=== PATIENT | male | born 1955 | race African-American/Black ===

== ENCOUNTER 2020-07-18 14:43 | Inpatient (IN) | payer OTHER ==
[2020-07-18 19:14] VITALS: BMI 22.7
[2020-07-18] MEDS ORDERED: BISMUTH SUBSALICYLATE 524 MG/30 ML UD PO PRN (21:23)
[2020-07-18] MEDS ORDERED: hydrOXYzine PAMOATE 25 MG CAPSULE (FP) PO PRN (21:23)
[2020-07-18] MEDS ORDERED: IBUPROFEN 400 MG TABLET (FP) PO PRN (21:23)
[2020-07-18] MEDS ORDERED: MAG HYDROX/AL HYDROX/SIMETH 30 ML UNIT-DOSE CUP PO PRN (21:23)
[2020-07-18] MEDS ORDERED: MENTHOL/PHENOL 1 EACH UD MM PRN (21:23)
[2020-07-18] MEDS ORDERED: ONDANSETRON *ODT* 4 MG TABLET SL PRN (21:23)
[2020-07-18] MEDS ORDERED: MAGNESIUM CITRATE 300 ML BOTTLE PO PRN (21:23)
[2020-07-18] MEDS ORDERED: MAGNESIUM HYDROX 2400MG/30ML ORAL SUSPENSION 30 ML CUP PO PRN (21:23)
[2020-07-18] MEDS ORDERED: ACETAMINOPHEN 325 MG TABLET (FP) PO PRN ×2 (21:23)
[2020-07-18] MEDS ORDERED: METHOCARBAMOL 500 MG TABLET PO PRN (21:23)
[2020-07-18] MEDS ORDERED: METHADONE HCL 10 MG TABLET (FOR DETOX USE ONLY) PO ONE (21:26)
[2020-07-18] MEDS ORDERED: cloNIDine HCL 0.1 MG TABLET PO PRN (21:26)
[2020-07-18] MEDS: MELATONIN 5 MG TABLETS PO SCH (22:08)
[2020-07-18] MEDS: THIAMINE HCL 100 MG TABLET (FP) PO SCH (22:08)
[2020-07-19 09:58] VITALS: BP 146/80; PULSE 73; TEMP 98.3
[2020-07-19] MEDS ORDERED: PRENATAL VITAMINS W/ FOLIC ACID TABLET (FP) PO SCH (10:00)
[2020-07-19] MEDS ORDERED: amLODIPine BESYLATE 10 MG TABLET (FP) PO SCH (10:00)
[2020-07-19] MEDS ORDERED: METHADONE HCL 5 MG TABLET (FOR DETOX USE ONLY) PO ONE (10:00)
[2020-07-19 11:04] LABS: ALBUMIN 3.5 g/dl (3.4-5.0); BLOOD UREA NITROGEN 18.9 mg/dL (7-18); CALCIUM 9.1 mg/dL (8.5-10.1)
[2020-07-19 11:07] LABS: CREATININE 1.2 mg/dL (0.55-1.3); HEMATOCRIT 20.9 % (35.4-49); HEMOGLOBIN 7.5 GM/dL (11.7-16.9); MCH 33.1 pg (25.7-33.7); MCHC 35.9 g/dl (32.0-35.9); MEAN CELL VOLUME 92.3 fl (80-96); MEAN PLT VOLUME 8.5 fl (7.5-11.1); PLATELET COUNT 138 K/MM3 (134-434); RBC 2.27 M/mm3 (4.00-5.60); RDW 20.4 % (11.9-15.9); WHITE BLOOD COUNT 3.5 K/mm3 (4.0-10.0)
[2020-07-19 11:09] LABS: BILIRUBIN,TOTAL 0.6 mg/dL (0.2-1); TOT PROT 7.2 g/dl (6.4-8.2)
[2020-07-19] MEDS: MELATONIN 5 MG TABLETS PO SCH (23:16)
[2020-07-19] MEDS: THIAMINE HCL 100 MG TABLET (FP) PO SCH (23:16)
[2020-07-20] MEDS ORDERED: METHADONE HCL 10 MG TABLET (FOR DETOX USE ONLY) PO ONE (10:00)
[2020-07-21] MEDS ORDERED: METHADONE HCL 5 MG TABLET (FOR DETOX USE ONLY) PO ONE (10:00)
== END 2020-07-20 00:14 | disposition short-term general hospital (02) | DRG 773 ==
LOC: YASAS 14:43 → Y6N 21:12
PROVIDERS: ADMIT Allergy & Immunology; ATTEND Allergy & Immunology
PROC: HZ2ZZZZ Detoxification Services for Substance Abuse Treatment (ICD-10-PCS; principal; 2020-07-18)
DX: F11.23 Opioid dependence with withdrawal (principal); F12.20 Cannabis dependence, uncomplicated; F17.210 Nicotine dependence, cigarettes, uncomplicated; I10 Essential (primary) hypertension; C34.90 Malignant neoplasm of unspecified part of unspecified bronchus or lung; R06.02 Shortness of breath; R05 Cough; K00.0 Anodontia
CPT/HCPCS: 36415; 80053; 85027; 86780; 93005; 93010; C9803; U0003; U0005

== ENCOUNTER 2020-07-19 12:45 | Inpatient (IN) | payer OTHER ==
[2020-07-19] MEDS ORDERED: SODIUM CHLORIDE 0.9% 500 ML INFUS.BAG IV ONE (14:20)
[2020-07-19 14:38] LABS: VENOUS BASE EXCESS 5.2 mmol/L (-2-2); VENOUS O2 SATURATION 42.5 % (70-80); VENOUS PCO2 60.3 mmHg (38-52); VENOUS PH 7.339 (7.310-7.410)
[2020-07-19 14:40] LABS: BASO % 0.1 % (0-2.0); EOS % 0.2 % (0-4.5); HEMATOCRIT 21.1 % (35.4-49); HEMOGLOBIN 7.3 GM/dL (11.7-16.9); MCH 32.6 pg (25.7-33.7); MCHC 34.6 g/dl (32.0-35.9); MEAN CELL VOLUME 94.3 fl (80-96); MEAN PLT VOLUME 8.4 fl (7.5-11.1); MONO % 4.8 % (3.8-10.2); NEUT % 80.9 % (42.8-82.8); PLATELET COUNT 155 K/MM3 (134-434); RBC 2.24 M/mm3 (4.00-5.60); RDW 20.4 % (11.9-15.9)
[2020-07-19 14:46] LABS: INR 1.05 (0.83-1.09); PROTHROMBIN TIME (PATIENT) 12.9 SEC (9.7-13.0)
[2020-07-19 14:58] LABS: CHLORIDE 88 mmol/L (98-107); SODIUM 126 mmol/L (136-145)
[2020-07-19 15:01] LABS: BLOOD UREA NITROGEN 19.3 mg/dL (7-18); CALCIUM 8.7 mg/dL (8.5-10.1)
[2020-07-19 15:02] LABS: ALBUMIN 3.8 g/dl (3.4-5.0); ANION GAP 3 MMOL/L (8-16); CO2 35 mmol/L (21-32); GLUCOSE,RANDOM 69 mg/dL (74-106); MAGNESIUM 1.8 mg/dL (1.8-2.4)
[2020-07-19 15:05] LABS: CREATININE 1.2 mg/dL (0.55-1.3); SGOT/AST 115 U/L (15-37); SGPT/ALT 80 U/L (13-61)
[2020-07-19 15:06] LABS: BILIRUBIN,TOTAL 0.7 mg/dL (0.2-1)
[2020-07-19 15:07] LABS: ALK PHOS 87 U/L (45-117)
[2020-07-19 15:10] LABS: N-TERMINAL BNP 400.3 pg/ml (5-125); TOT PROT 7.4 g/dl (6.4-8.2)
[2020-07-19] MEDS ORDERED: LEVOTHYROXINE NA 125 MCG TABLET (FP) PO ONE (15:49)
[2020-07-19] MEDS ORDERED: LEVOTHYROXINE NA 25 MCG TABLET (FP) ONE (16:21)
[2020-07-19 22:08] LABS: URINE APPEARANCE CLEAR; URINE BILIRUBIN NEGATIVE (NEGATIVE); URINE COLOR YELLOW; URINE GLUCOSE (UA) NEGATIVE (NEGATIVE); URINE KETONE NEGATIVE (NEGATIVE); URINE LEUK ESTERASE NEGATIVE (NEGATIVE); URINE NITRITE NEGATIVE (NEGATIVE); URINE PROTEIN NEGATIVE (NEGATIVE); URINE UROBILINOGEN 0.2 mg/dL (0.2-1.0)
[2020-07-19 22:14] LABS: METHADONE, UR NEGATIVE ng/ml (CUTOFF=300); PHENCYCLIDINE,URINE NEGATIVE ng/ml (CUTOFF=25); URINE BENZODIAZEPINES NEGATIVE ng/ml (CUTOFF=200)
[2020-07-19 22:15] LABS: URINE AMPHETAMINES NEGATIVE ng/ml (CUTOFF=500)
[2020-07-19] MEDS ORDERED: SODIUM PHOSPHATE - 15 MM in SODIUM CHLORIDE 250 ML IVPB ONE (22:15)
[2020-07-19] MEDS ORDERED: NAPH,MB-DB/K PH,MBDB POWDER PACKET PO ONE (22:16)
[2020-07-19] MEDS ORDERED: NAPH,MB-DB/K PH,MBDB POWDER PACKET ONE (22:22)
[2020-07-19 22:23] LABS: COCAINE, UR NEGATIVE ng/ml (CUTOFF=300); OPIATES, URI POSITIVE ng/ml (CUTOFF=300); URINE BARBITURATES NEGATIVE ng/ml (CUTOFF=200)
[2020-07-19 22:34] LABS: IRON SERUM 72 ug/dL (50-175); TOTAL IRON BINDING CAPACITY 241 ug/dL (250-450)
[2020-07-19 22:35] LABS: RETICULOCYTES 2.26 % (0.5-1.5)
[2020-07-19] MEDS: NICOTINE 7 MG/24 HOURS TOPICAL PATCH TD SCH (22:55)
[2020-07-19] MEDS ORDERED: amLODIPine BESYLATE 5 MG TABLET (FP) PO ONE (23:24)
[2020-07-20] MEDS: SODIUM CHLORIDE 1,000 ML IV SCH ×2 (04:43→07:43)
[2020-07-20] MEDS ORDERED: METHADONE HCL 5 MG TABLET PO ONE (05:35)
[2020-07-20] MEDS: LEVOTHYROXINE NA 50 MCG TABLET (FP) PO SCH (05:59)
[2020-07-20] MEDS: INSULIN SLIDING SCALE (NOVOLOG) 1 VIAL SQ SCH ×4 (06:11→21:45)
[2020-07-20] MEDS ORDERED: PNEUMOC 13-VAL CONJ-DIP CRM/PF 0.5 ML DISP.SYRIN IM ONE (06:22)
[2020-07-20] MEDS ORDERED: LEVOTHYROXINE NA 75 MCG TABLET (FP) PO SCH (07:00)
[2020-07-20] MEDS ORDERED: cloNIDine HCL 0.1 MG TABLET PO PRN (09:04)
[2020-07-20] MEDS ORDERED: FLU VACCINE (FLULAVAL) PF 60 MCG/0.5 ML SYRINGE 2020-2021 IM ONE (10:00)
[2020-07-20] MEDS ORDERED: PNEUMOCOCCAL 23 VACCINE 0.5 ML VIAL IM ONE (10:00)
[2020-07-20] MEDS ORDERED: METHADONE 20 MG, METHADONE 5 MG PO ONE (10:00)
[2020-07-20] MEDS ORDERED: METHADONE HCL 10 MG TABLET ONE (10:33)
[2020-07-20] MEDS ORDERED: METHADONE HCL 5 MG TABLET ONE (10:33)
[2020-07-20] MEDS: POLYETHYLENE GLYCOL 3350 119 GM BTL PO SCH (10:45)
[2020-07-20] MEDS: amLODIPine BESYLATE 5 MG TABLET (FP) PO SCH (10:48)
[2020-07-20] MEDS: ENOXAPARIN NA (PORCINE) 40 MG/0.4 ML DISP.SYRIN SQ SCH (10:50)
[2020-07-20 12:01] LABS: BASO % 0.2 % (0-2.0); EOS % 0.4 % (0-4.5); HEMOGLOBIN 9.4 GM/dL (11.7-16.9); LYMPH % 14.9 % (8-40); MCH 32.3 pg (25.7-33.7); MEAN CELL VOLUME 92.5 fl (80-96); MEAN PLT VOLUME 8.1 fl (7.5-11.1); MONO % 4.8 % (3.8-10.2); NEUT % 79.7 % (42.8-82.8); PLATELET COUNT 141 K/MM3 (134-434); RBC 2.92 M/mm3 (4.00-5.60); WHITE BLOOD COUNT 3.6 K/mm3 (4.0-10.0)
[2020-07-20 12:28] LABS: ALBUMIN 3.6 g/dl (3.4-5.0); CALCIUM 8.9 mg/dL (8.5-10.1)
[2020-07-20 12:29] LABS: BLOOD UREA NITROGEN 14.9 mg/dL (7-18); MAGNESIUM 1.9 mg/dL (1.8-2.4)
[2020-07-20 12:32] LABS: CREATININE 1.1 mg/dL (0.55-1.3); PHOSPHOROUS 2.5 mg/dL (2.5-4.9)
[2020-07-20 12:33] LABS: BILIRUBIN,TOTAL 1.2 mg/dL (0.2-1); TOT PROT 7.7 g/dl (6.4-8.2)
[2020-07-20] MEDS: NICOTINE 7 MG/24 HOURS TOPICAL PATCH TD SCH (14:24)
[2020-07-20] MEDS: MINERAL OIL/PET HY-PHL TOPICAL OINTMENT 454 GM JAR TP SCH ×2 (18:23→22:25)
[2020-07-21] MEDS ORDERED: BISACODYL 5 MG TABLET.DR (FP) PO ONE (01:52)
[2020-07-21] MEDS: LEVOTHYROXINE NA 50 MCG TABLET (FP) PO SCH (06:08)
[2020-07-21] MEDS: INSULIN SLIDING SCALE (NOVOLOG) 1 VIAL SQ SCH ×4 (06:13→21:47)
[2020-07-21] MEDS ORDERED: amLODIPine BESYLATE 5 MG TABLET (FP) PO ONE (06:22)
[2020-07-21] MEDS ORDERED: LISINOPRIL 10 MG TABLET PO ONE (07:49)
[2020-07-21 08:16] LABS: HEMATOCRIT 25.5 % (35.4-49); HEMOGLOBIN 9.2 GM/dL (11.7-16.9); MCH 32.7 pg (25.7-33.7); MCHC 35.9 g/dl (32.0-35.9); MEAN PLT VOLUME 7.8 fl (7.5-11.1); PLATELET COUNT 136 K/MM3 (134-434); RDW 19.9 % (11.9-15.9); WHITE BLOOD COUNT 3.2 K/mm3 (4.0-10.0)
[2020-07-21 08:36] LABS: ALBUMIN 3.5 g/dl (3.4-5.0); BLOOD UREA NITROGEN 13.4 mg/dL (7-18); CALCIUM 8.9 mg/dL (8.5-10.1)
[2020-07-21 08:39] LABS: CREATININE 1.1 mg/dL (0.55-1.3)
[2020-07-21 08:40] LABS: TOT PROT 7.2 g/dl (6.4-8.2)
[2020-07-21] MEDS: amLODIPine BESYLATE 5 MG TABLET (FP) PO SCH (09:37)
[2020-07-21] MEDS: MINERAL OIL/PET HY-PHL TOPICAL OINTMENT 454 GM JAR TP SCH ×2 (09:38→21:47)
[2020-07-21] MEDS: ENOXAPARIN NA (PORCINE) 40 MG/0.4 ML DISP.SYRIN SQ SCH (09:38)
[2020-07-21] MEDS: POLYETHYLENE GLYCOL 3350 119 GM BTL PO SCH (09:39)
[2020-07-21] MEDS: NICOTINE 7 MG/24 HOURS TOPICAL PATCH TD SCH (09:39)
[2020-07-21] MEDS ORDERED: METHADONE HCL 10 MG TABLET PO ONE (10:00)
[2020-07-21] MEDS ORDERED: MINERAL OIL ENEMA 133 ML ENEMA PR ONE (15:29)
[2020-07-21 16:15] VITALS: BMI 21.2
[2020-07-21] MEDS: SODIUM CHLORIDE 1 GM TABLET PO SCH ×2 (16:46→21:47)
[2020-07-22] MEDS ORDERED: ACETAMINOPHEN 1000 MG/100 ML VIAL (NON FORMULARY) IVPB ONE (01:22)
[2020-07-22] MEDS: LIOTHYRONINE SODIUM 5 MCG TABLET PO SCH (06:09)
[2020-07-22] MEDS: INSULIN SLIDING SCALE (NOVOLOG) 1 VIAL SQ SCH ×4 (06:09→21:12)
[2020-07-22] MEDS: LEVOTHYROXINE NA 75 MCG TABLET (FP) PO SCH (06:09)
[2020-07-22] MEDS ORDERED: METHADONE HCL 5 MG TABLET ONE (09:43)
[2020-07-22] MEDS ORDERED: METHADONE HCL 10 MG TABLET ONE (09:44)
[2020-07-22] MEDS ORDERED: METHADONE 10 MG, METHADONE 5 MG PO ONE (10:00)
[2020-07-22] MEDS: MINERAL OIL/PET HY-PHL TOPICAL OINTMENT 454 GM JAR TP SCH ×2 (10:01→21:12)
[2020-07-22] MEDS: ENOXAPARIN NA (PORCINE) 40 MG/0.4 ML DISP.SYRIN SQ SCH (10:02)
[2020-07-22] MEDS: NICOTINE 7 MG/24 HOURS TOPICAL PATCH TD SCH (10:04)
[2020-07-22] MEDS: LISINOPRIL 10 MG TABLET PO SCH (10:04)
[2020-07-22] MEDS: amLODIPine BESYLATE 5 MG TABLET (FP) PO SCH (10:04)
[2020-07-22] MEDS: SENNOSIDES 8.6MG TABLET (FP) PO SCH ×2 (10:04→21:12)
[2020-07-22] MEDS: POLYETHYLENE GLYCOL 3350 119 GM BTL PO SCH (10:04)
[2020-07-22] MEDS: SODIUM CHLORIDE 1 GM TABLET PO SCH ×2 (10:05→21:12)
[2020-07-22 10:14] LABS: BASO % 0.4 % (0-2.0); EOS % 0.5 % (0-4.5); LYMPH % 13.8 % (8-40); MCH 32.7 pg (25.7-33.7); MCHC 34.6 g/dl (32.0-35.9); MEAN CELL VOLUME 94.6 fl (80-96); MEAN PLT VOLUME 8.5 fl (7.5-11.1); MONO % 6.8 % (3.8-10.2); NEUT % 78.5 % (42.8-82.8); PLATELET COUNT 136 K/MM3 (134-434); RBC 2.74 M/mm3 (4.00-5.60); RDW 19.8 % (11.9-15.9); WHITE BLOOD COUNT 3.5 K/mm3 (4.0-10.0)
[2020-07-22 10:35] LABS: CALCIUM 8.8 mg/dL (8.5-10.1)
[2020-07-22 10:36] LABS: BLOOD UREA NITROGEN 17.9 mg/dL (7-18)
[2020-07-22 10:39] LABS: CREATININE 1.3 mg/dL (0.55-1.3)
[2020-07-22] MEDS ORDERED: MINERAL OIL ENEMA 133 ML ENEMA RC ONE (18:30)
[2020-07-23] MEDS ORDERED: PT OWN MED DRAWER 7, Y5N ONE ×2 (05:54→09:16)
[2020-07-23] MEDS: LEVOTHYROXINE NA 75 MCG TABLET (FP) PO SCH (06:03)
[2020-07-23] MEDS: LIOTHYRONINE SODIUM 5 MCG TABLET PO SCH (06:03)
[2020-07-23] MEDS: INSULIN SLIDING SCALE (NOVOLOG) 1 VIAL SQ SCH ×4 (06:03→21:29)
[2020-07-23] MEDS: NICOTINE 7 MG/24 HOURS TOPICAL PATCH TD SCH (09:48)
[2020-07-23] MEDS: MINERAL OIL/PET HY-PHL TOPICAL OINTMENT 454 GM JAR TP SCH ×2 (09:48→22:11)
[2020-07-23] MEDS: amLODIPine BESYLATE 5 MG TABLET (FP) PO SCH (09:49)
[2020-07-23] MEDS: SODIUM CHLORIDE 1 GM TABLET PO SCH ×2 (09:49→22:11)
[2020-07-23] MEDS: SENNOSIDES 8.6MG TABLET (FP) PO SCH ×2 (09:49→22:11)
[2020-07-23] MEDS: LISINOPRIL 10 MG TABLET PO SCH (09:49)
[2020-07-23] MEDS: ENOXAPARIN NA (PORCINE) 40 MG/0.4 ML DISP.SYRIN SQ SCH (09:49)
[2020-07-23] MEDS ORDERED: METHADONE HCL 10 MG TABLET PO ONE (10:00)
[2020-07-23] MEDS ORDERED: PIPERACILLIN/TAZOB 3.375 GM 3.375 GM in DEXTROSE 5%-WATER - 50 ML IVPB ONE (10:55)
[2020-07-23] MEDS ORDERED: CIPROFLOXACIN 500 MG TABLET (RESTRICTED TO ID) PO ONE (10:56)
[2020-07-23] MEDS ORDERED: ACETAMINOPHEN 1000 MG/100 ML VIAL (NON FORMULARY) IVPB ONE (11:00)
[2020-07-23] MEDS: LACTULOSE 20 GM/30 ML UDC (FOR ORAL USE ONLY) PO SCH ×2 (12:13→22:11)
[2020-07-23] MEDS ORDERED: PIPERACILLIN/TAZOBACTAM 3.375 GM VIAL IVPB ONE ×2 (14:18→20:22)
[2020-07-23] MEDS ORDERED: DEXTROSE 5%-WATER - 50 ML IVPB ONE ×2 (14:18→20:22)
[2020-07-23] MEDS: PIPERACILLIN/TAZOB 3.375 GM 3.375 GM in DEXTROSE 5%-WATER - 50 ML IVPB SCH ×2 (14:38→20:44)
[2020-07-23] MEDS: POLYETHYLENE GLYCOL 3350 119 GM BTL PO SCH ×2 (15:42→22:11)
[2020-07-23] MEDS ORDERED: traMADol HCL 50 MG TABLET PO PRN (16:13)
[2020-07-23 16:38] LABS: BASO % 0.3 % (0-2.0); EOS % 0.2 % (0-4.5); HEMATOCRIT 23.3 % (35.4-49); HEMOGLOBIN 7.9 GM/dL (11.7-16.9); LYMPH % 9.8 % (8-40); MCH 32.2 pg (25.7-33.7); MCHC 33.9 g/dl (32.0-35.9); MEAN PLT VOLUME 8.6 fl (7.5-11.1); MONO % 4.5 % (3.8-10.2); NEUT % 85.2 % (42.8-82.8); PLATELET COUNT 137 K/MM3 (134-434); RBC 2.45 M/mm3 (4.00-5.60); RDW 20.6 % (11.9-15.9); WHITE BLOOD COUNT 6.3 K/mm3 (4.0-10.0)
[2020-07-23 17:04] LABS: BLOOD UREA NITROGEN 16.6 mg/dL (7-18); CALCIUM 9.1 mg/dL (8.5-10.1)
[2020-07-23 17:08] LABS: CREATININE 1.7 mg/dL (0.55-1.3)
[2020-07-23 17:10] LABS: ANISOCYTOSIS 1+; MACROCYTOSIS 1+; PLATELET ESTIMATE DECREASED
[2020-07-23] MEDS ORDERED: SODIUM CHLORIDE 1,000 ML IV STA (17:49)
[2020-07-23] MEDS: SODIUM CHLORIDE 1,000 ML IV SCH (20:44)
[2020-07-23] MEDS: HYDROCORTISONE SOD SUCCINATE 100 MG/2 ML VIAL IVPB SCH (21:30)
[2020-07-23] MEDS ORDERED: traMADol HCL 50 MG TABLET PO ONE (23:35)
[2020-07-24 01:04] LABS: CALCIUM 8.7 mg/dL (8.5-10.1)
[2020-07-24 01:08] LABS: CREATININE 1.5 mg/dL (0.55-1.3)
[2020-07-24] MEDS ORDERED: PIPERACILLIN/TAZOBACTAM 3.375 GM VIAL IVPB ONE ×3 (02:22→17:41)
[2020-07-24] MEDS ORDERED: DEXTROSE 5%-WATER - 50 ML IVPB ONE ×3 (02:23→17:41)
[2020-07-24] MEDS: PIPERACILLIN/TAZOB 3.375 GM 3.375 GM in DEXTROSE 5%-WATER - 50 ML IVPB SCH ×3 (02:51→18:39)
[2020-07-24] MEDS ORDERED: METHADONE HCL 5 MG TABLET PO ONE (06:00)
[2020-07-24] MEDS ORDERED: PT OWN MED DRAWER 7, Y5N ONE ×2 (06:04→10:14)
[2020-07-24] MEDS: LEVOTHYROXINE NA 75 MCG TABLET (FP) PO SCH (06:53)
[2020-07-24] MEDS: INSULIN SLIDING SCALE (NOVOLOG) 1 VIAL SQ SCH ×4 (06:54→22:31)
[2020-07-24] MEDS: POLYETHYLENE GLYCOL 3350 119 GM BTL PO SCH ×3 (06:54→22:31)
[2020-07-24] MEDS: LIOTHYRONINE SODIUM 5 MCG TABLET PO SCH (06:54)
[2020-07-24 09:23] LABS: BASO % 0.1 % (0-2.0); HEMATOCRIT 19.5 % (35.4-49); LYMPH % 6.4 % (8-40); MCH 32.7 pg (25.7-33.7); MCHC 34.8 g/dl (32.0-35.9); MEAN PLT VOLUME 8.3 fl (7.5-11.1); MONO % 2.3 % (3.8-10.2); NEUT % 91.2 % (42.8-82.8); PLATELET COUNT 120 K/MM3 (134-434); RBC 2.07 M/mm3 (4.00-5.60); RDW 20.9 % (11.9-15.9); WHITE BLOOD COUNT 4.5 K/mm3 (4.0-10.0)
[2020-07-24 09:27] LABS: HEMOGLOBIN 6.8 GM/dL (11.7-16.9)
[2020-07-24] MEDS ORDERED: PANTOPRAZOLE 40 MG TABLET PO SCH (10:00)
[2020-07-24 10:11] LABS: BLOOD UREA NITROGEN 14.9 mg/dL (7-18); CALCIUM 8.7 mg/dL (8.5-10.1)
[2020-07-24 10:12] LABS: ALBUMIN 3.5 g/dl (3.4-5.0)
[2020-07-24 10:14] LABS: CREATININE 1.4 mg/dL (0.55-1.3)
[2020-07-24 10:15] LABS: BILIRUBIN,TOTAL 0.9 mg/dL (0.2-1)
[2020-07-24 10:16] LABS: TOT PROT 6.8 g/dl (6.4-8.2)
[2020-07-24 10:19] LABS: ANISOCYTOSIS 1+; PLATELET ESTIMATE DECREASED
[2020-07-24] MEDS: SODIUM CHLORIDE 1,000 ML IV SCH ×2 (10:26→18:41)
[2020-07-24] MEDS: MINERAL OIL/PET HY-PHL TOPICAL OINTMENT 454 GM JAR TP SCH ×2 (10:34→22:30)
[2020-07-24] MEDS: NICOTINE 7 MG/24 HOURS TOPICAL PATCH TD SCH (10:35)
[2020-07-24] MEDS: SENNOSIDES 8.6MG TABLET (FP) PO SCH ×2 (10:38→22:32)
[2020-07-24] MEDS: LISINOPRIL 10 MG TABLET PO SCH (10:38)
[2020-07-24] MEDS: SODIUM CHLORIDE 1 GM TABLET PO SCH ×2 (10:39→22:32)
[2020-07-24] MEDS: amLODIPine BESYLATE 5 MG TABLET (FP) PO SCH (10:39)
[2020-07-24] MEDS: HYDROCORTISONE SOD SUCCINATE 100 MG/2 ML VIAL IVPB SCH ×2 (12:25→22:32)
[2020-07-24] MEDS ORDERED: MIDAZOLAM HCL 2 MG/2 ML SINGLE DOSE VIAL ONE (14:57)
[2020-07-24] MEDS ORDERED: PROPOFOL 20 ML ONE (14:57)
[2020-07-24] MEDS ORDERED: morphine SULFATE 4 MG/ML VIAL IVPUSH PRN (16:17)
[2020-07-24] MEDS ORDERED: traMADol HCL 50 MG TABLET PO PRN (16:22)
[2020-07-25] MEDS ORDERED: DEXTROSE 5%-WATER - 50 ML IVPB ONE ×3 (01:22→17:08)
[2020-07-25] MEDS ORDERED: PIPERACILLIN/TAZOBACTAM 3.375 GM VIAL IVPB ONE ×3 (01:22→17:08)
[2020-07-25] MEDS: PIPERACILLIN/TAZOB 3.375 GM 3.375 GM in DEXTROSE 5%-WATER - 50 ML IVPB SCH ×3 (02:47→18:06)
[2020-07-25] MEDS ORDERED: PT OWN MED DRAWER 7, Y5N ONE ×2 (05:22→10:51)
[2020-07-25] MEDS: POLYETHYLENE GLYCOL 3350 119 GM BTL PO SCH ×2 (06:23→22:25)
[2020-07-25] MEDS: LEVOTHYROXINE NA 75 MCG TABLET (FP) PO SCH (06:23)
[2020-07-25] MEDS: LIOTHYRONINE SODIUM 5 MCG TABLET PO SCH (06:24)
[2020-07-25] MEDS: INSULIN SLIDING SCALE (NOVOLOG) 1 VIAL SQ SCH ×4 (06:24→22:25)
[2020-07-25 07:35] LABS: HEMATOCRIT 19.3 % (35.4-49); MCH 31.6 pg (25.7-33.7); MCHC 35.1 g/dl (32.0-35.9); MEAN CELL VOLUME 90.1 fl (80-96); MEAN PLT VOLUME 8.1 fl (7.5-11.1); PLATELET COUNT 112 K/MM3 (134-434); RBC 2.14 M/mm3 (4.00-5.60); RDW 17.3 % (11.9-15.9); WHITE BLOOD COUNT 5.7 K/mm3 (4.0-10.0)
[2020-07-25 07:39] LABS: HEMOGLOBIN 6.8 GM/dL (11.7-16.9)
[2020-07-25 07:52] LABS: INR 1.2 (0.83-1.09); PROTHROMBIN TIME (PATIENT) 14.7 SEC (9.7-13.0)
[2020-07-25 07:59] LABS: CALCIUM 8.3 mg/dL (8.5-10.1)
[2020-07-25 08:00] LABS: ALBUMIN 2.8 g/dl (3.4-5.0); BLOOD UREA NITROGEN 24.7 mg/dL (7-18)
[2020-07-25 08:03] LABS: CREATININE 1.5 mg/dL (0.55-1.3)
[2020-07-25 08:04] LABS: BILIRUBIN,TOTAL 1.5 mg/dL (0.2-1)
[2020-07-25 08:05] LABS: TOT PROT 5.7 g/dl (6.4-8.2)
[2020-07-25] MEDS ORDERED: LIDOCAINE HCL 1%, 10 MG/ML (20ML VIAL) ONE (08:12)
[2020-07-25] MEDS ORDERED: SODIUM CHLORIDE 0.9% 1000 ML INFUS.BAG IV ONE (08:33)
[2020-07-25] MEDS ORDERED: LISINOPRIL 10 MG TABLET PO SCH (10:00)
[2020-07-25] MEDS ORDERED: amLODIPine BESYLATE 5 MG TABLET (FP) PO SCH (10:00)
[2020-07-25] MEDS: SODIUM CHLORIDE 1 GM TABLET PO SCH ×2 (11:12→22:24)
[2020-07-25] MEDS: SENNOSIDES 8.6MG TABLET (FP) PO SCH ×2 (11:12→22:25)
[2020-07-25] MEDS: PANTOPRAZOLE 40 MG TABLET PO SCH (11:12)
[2020-07-25] MEDS: NICOTINE 7 MG/24 HOURS TOPICAL PATCH TD SCH (11:12)
[2020-07-25] MEDS: MINERAL OIL/PET HY-PHL TOPICAL OINTMENT 454 GM JAR TP SCH ×2 (11:13→22:25)
[2020-07-25] MEDS: SODIUM CHLORIDE 1,000 ML IV SCH (12:20)
[2020-07-25] MEDS: HYDROCORTISONE SOD SUCCINATE 100 MG/2 ML VIAL IVPB SCH ×2 (12:24→22:24)
[2020-07-25 21:00] LABS: HEMATOCRIT 22.6 % (35.4-49); HEMOGLOBIN 7.9 GM/dL (11.7-16.9); MCH 30.7 pg (25.7-33.7); MCHC 34.9 g/dl (32.0-35.9); MEAN CELL VOLUME 88.1 fl (80-96); MEAN PLT VOLUME 8.4 fl (7.5-11.1); PLATELET COUNT 103 K/MM3 (134-434); RBC 2.56 M/mm3 (4.00-5.60); RDW 15.2 % (11.9-15.9); WHITE BLOOD COUNT 5.3 K/mm3 (4.0-10.0)
[2020-07-26] MEDS ORDERED: DEXTROSE 5%-WATER - 50 ML IVPB ONE ×3 (01:27→17:13)
[2020-07-26] MEDS ORDERED: PIPERACILLIN/TAZOBACTAM 3.375 GM VIAL IVPB ONE ×3 (01:27→17:12)
[2020-07-26] MEDS: PIPERACILLIN/TAZOB 3.375 GM 3.375 GM in DEXTROSE 5%-WATER - 50 ML IVPB SCH ×3 (01:59→17:17)
[2020-07-26] MEDS ORDERED: PT OWN MED DRAWER 7, Y5N ONE (06:10)
[2020-07-26] MEDS: LEVOTHYROXINE NA 75 MCG TABLET (FP) PO SCH (06:25)
[2020-07-26] MEDS: LIOTHYRONINE SODIUM 5 MCG TABLET PO SCH (06:26)
[2020-07-26] MEDS: INSULIN SLIDING SCALE (NOVOLOG) 1 VIAL SQ SCH ×3 (06:26→17:25)
[2020-07-26 09:44] LABS: HEMATOCRIT 23.9 % (35.4-49); HEMOGLOBIN 8.5 GM/dL (11.7-16.9); MCHC 35.6 g/dl (32.0-35.9); MEAN CELL VOLUME 86.9 fl (80-96); MEAN PLT VOLUME 8.1 fl (7.5-11.1); PLATELET COUNT 108 K/MM3 (134-434); RBC 2.75 M/mm3 (4.00-5.60); RDW 16.3 % (11.9-15.9); WHITE BLOOD COUNT 5.2 K/mm3 (4.0-10.0)
[2020-07-26 10:25] LABS: ALBUMIN 3.1 g/dl (3.4-5.0)
[2020-07-26] MEDS ORDERED: SODIUM CHLORIDE 0.9% 500 ML INFUS.BAG IV ONE (10:27)
[2020-07-26 10:28] LABS: CREATININE 1.4 mg/dL (0.55-1.3)
[2020-07-26] MEDS ORDERED: MORPHINE SULFATE 2 MG/ML VIAL IVPUSH PRN (10:28)
[2020-07-26 10:29] LABS: BILIRUBIN,TOTAL 0.9 mg/dL (0.2-1)
[2020-07-26 10:30] LABS: TOT PROT 6.4 g/dl (6.4-8.2)
[2020-07-26 10:32] LABS: BLOOD UREA NITROGEN 27.5 mg/dL (7-18)
[2020-07-26] MEDS: MINERAL OIL/PET HY-PHL TOPICAL OINTMENT 454 GM JAR TP SCH ×2 (10:32→23:55)
[2020-07-26] MEDS: NICOTINE 7 MG/24 HOURS TOPICAL PATCH TD SCH (10:33)
[2020-07-26] MEDS: POLYETHYLENE GLYCOL 3350 119 GM BTL PO SCH ×2 (10:33→23:55)
[2020-07-26] MEDS: PANTOPRAZOLE 40 MG TABLET PO SCH (10:34)
[2020-07-26] MEDS: HYDROCORTISONE SOD SUCCINATE 100 MG/2 ML VIAL IVPB SCH (10:34)
[2020-07-26] MEDS: SENNOSIDES 8.6MG TABLET (FP) PO SCH (10:34)
[2020-07-26] MEDS: SODIUM CHLORIDE 1 GM TABLET PO SCH (10:34)
[2020-07-26 16:08] LABS: HEP B CORE AB, TOT Negative (Negative)
[2020-07-26 19:46] LABS: BASO % 0.1 % (0-2.0); HEMATOCRIT 21.3 % (35.4-49); HEMOGLOBIN 7.6 GM/dL (11.7-16.9); LYMPH % 7.4 % (8-40); MCH 31.4 pg (25.7-33.7); MCHC 35.6 g/dl (32.0-35.9); MEAN CELL VOLUME 88.3 fl (80-96); MEAN PLT VOLUME 8.4 fl (7.5-11.1); NEUT % 86.5 % (42.8-82.8); PLATELET COUNT 106 K/MM3 (134-434); RBC 2.41 M/mm3 (4.00-5.60); RDW 16.3 % (11.9-15.9); WHITE BLOOD COUNT 4.7 K/mm3 (4.0-10.0)
[2020-07-27] MEDS: SENNOSIDES 8.6MG TABLET (FP) PO SCH ×3 (00:01→23:03)
[2020-07-27] MEDS: SODIUM CHLORIDE 1 GM TABLET PO SCH ×3 (00:01→23:03)
[2020-07-27] MEDS: INSULIN SLIDING SCALE (NOVOLOG) 1 VIAL SQ SCH ×5 (00:05→23:02)
[2020-07-27] MEDS: HYDROCORTISONE SOD SUCCINATE 100 MG/2 ML VIAL IVPB SCH ×3 (02:10→23:03)
[2020-07-27] MEDS ORDERED: LABETALOL HCL 100 MG TABLET (FP) PO ONE (02:25)
[2020-07-27] MEDS ORDERED: PIPERACILLIN/TAZOBACTAM 3.375 GM VIAL IVPB ONE ×3 (02:45→16:45)
[2020-07-27] MEDS: PIPERACILLIN/TAZOB 3.375 GM 3.375 GM in DEXTROSE 5%-WATER - 50 ML IVPB SCH ×3 (02:46→17:05)
[2020-07-27] MEDS ORDERED: DEXTROSE 5%-WATER - 50 ML IVPB ONE ×3 (02:46→16:45)
[2020-07-27] MEDS: LEVOTHYROXINE NA 75 MCG TABLET (FP) PO SCH (06:28)
[2020-07-27] MEDS: LIOTHYRONINE SODIUM 5 MCG TABLET PO SCH (06:34)
[2020-07-27 06:57] LABS: HEMATOCRIT 23.5 % (35.4-49); HEMOGLOBIN 8.2 GM/dL (11.7-16.9); MCHC 34.7 g/dl (32.0-35.9); MEAN CELL VOLUME 89.3 fl (80-96); PLATELET COUNT 95 K/MM3 (134-434); RBC 2.63 M/mm3 (4.00-5.60); RDW 15.7 % (11.9-15.9); WHITE BLOOD COUNT 3.8 K/mm3 (4.0-10.0)
[2020-07-27 07:20] LABS: BLOOD UREA NITROGEN 22.3 mg/dL (7-18); CALCIUM 8.4 mg/dL (8.5-10.1)
[2020-07-27 07:24] LABS: CREATININE 1.2 mg/dL (0.55-1.3)
[2020-07-27] MEDS ORDERED: MORPHINE SULFATE 2 MG/ML VIAL IVPUSH PRN (08:09)
[2020-07-27] MEDS ORDERED: traMADol HCL 50 MG TABLET PO PRN (08:09)
[2020-07-27] MEDS ORDERED: PT OWN MED DRAWER 7, Y5N ONE (10:31)
[2020-07-27] MEDS: POLYETHYLENE GLYCOL 3350 119 GM BTL PO SCH ×2 (10:43→23:02)
[2020-07-27] MEDS: PANTOPRAZOLE 40 MG TABLET PO SCH (10:43)
[2020-07-27] MEDS: MINERAL OIL/PET HY-PHL TOPICAL OINTMENT 454 GM JAR TP SCH ×2 (10:51→23:03)
[2020-07-27 21:39] LABS: BASO % 0.2 % (0-2.0); EOS % 0.3 % (0-4.5); HEMATOCRIT 24.5 % (35.4-49); HEMOGLOBIN 8.6 GM/dL (11.7-16.9); LYMPH % 7.3 % (8-40); MCH 31.4 pg (25.7-33.7); MCHC 35.2 g/dl (32.0-35.9); MEAN PLT VOLUME 8.5 fl (7.5-11.1); MONO % 4.7 % (3.8-10.2); NEUT % 87.5 % (42.8-82.8); PLATELET COUNT 117 K/MM3 (134-434); RBC 2.75 M/mm3 (4.00-5.60); WHITE BLOOD COUNT 6.8 K/mm3 (4.0-10.0)
[2020-07-28] MEDS ORDERED: DEXTROSE 5%-WATER - 50 ML IVPB ONE ×3 (00:56→17:22)
[2020-07-28] MEDS ORDERED: PIPERACILLIN/TAZOBACTAM 3.375 GM VIAL IVPB ONE ×3 (00:56→17:22)
[2020-07-28] MEDS: PIPERACILLIN/TAZOB 3.375 GM 3.375 GM in DEXTROSE 5%-WATER - 50 ML IVPB SCH ×3 (01:09→17:23)
[2020-07-28] MEDS: INSULIN SLIDING SCALE (NOVOLOG) 1 VIAL SQ SCH ×4 (06:09→21:56)
[2020-07-28] MEDS ORDERED: LIOTHYRONINE SODIUM 5 MCG TABLET PO SCH (07:00)
[2020-07-28] MEDS ORDERED: LEVOTHYROXINE NA 75 MCG TABLET (FP) PO SCH (07:00)
[2020-07-28 07:37] LABS: BASO % 0.1 % (0-2.0); HEMATOCRIT 24.5 % (35.4-49); HEMOGLOBIN 8.7 GM/dL (11.7-16.9); LYMPH % 6.1 % (8-40); MCH 31.8 pg (25.7-33.7); MCHC 35.4 g/dl (32.0-35.9); MEAN CELL VOLUME 89.8 fl (80-96); MEAN PLT VOLUME 8.1 fl (7.5-11.1); MONO % 3.9 % (3.8-10.2); NEUT % 89.9 % (42.8-82.8); PLATELET COUNT 117 K/MM3 (134-434); RBC 2.73 M/mm3 (4.00-5.60); RDW 15.9 % (11.9-15.9); WHITE BLOOD COUNT 5.1 K/mm3 (4.0-10.0)
[2020-07-28 07:57] LABS: CALCIUM 8.8 mg/dL (8.5-10.1)
[2020-07-28 07:58] LABS: BLOOD UREA NITROGEN 22.5 mg/dL (7-18)
[2020-07-28 08:01] LABS: CREATININE 1.2 mg/dL (0.55-1.3)
[2020-07-28] MEDS: SENNOSIDES 8.6MG TABLET (FP) PO SCH ×2 (10:45→21:58)
[2020-07-28] MEDS: PANTOPRAZOLE 40 MG TABLET PO SCH (10:45)
[2020-07-28] MEDS: MINERAL OIL/PET HY-PHL TOPICAL OINTMENT 454 GM JAR TP SCH ×2 (10:45→21:58)
[2020-07-28] MEDS: POLYETHYLENE GLYCOL 3350 119 GM BTL PO SCH ×2 (10:45→21:56)
[2020-07-28] MEDS: SODIUM CHLORIDE 1 GM TABLET PO SCH (10:46)
[2020-07-28] MEDS: HYDROCORTISONE SOD SUCCINATE 100 MG/2 ML VIAL IVPB SCH ×2 (10:46→21:58)
[2020-07-28] MEDS ORDERED: amLODIPine BESYLATE 5 MG TABLET (FP) PO ONE (11:46)
[2020-07-28] MEDS: NICOTINE 21 MG/24 HOURS TOPICAL PATCH TD SCH (17:23)
[2020-07-28 17:55] LABS: BASO % 0.1 % (0-2.0); HEMATOCRIT 23.8 % (35.4-49); HEMOGLOBIN 8.3 GM/dL (11.7-16.9); MCH 31.5 pg (25.7-33.7); MCHC 34.9 g/dl (32.0-35.9); MEAN CELL VOLUME 90.3 fl (80-96); MONO % 4.7 % (3.8-10.2); NEUT % 89.2 % (42.8-82.8); PLATELET COUNT 121 K/MM3 (134-434); RBC 2.64 M/mm3 (4.00-5.60); RDW 16.1 % (11.9-15.9); WHITE BLOOD COUNT 5.9 K/mm3 (4.0-10.0)
[2020-07-28 18:06] LABS: INR 1.06 (0.83-1.09); PROTHROMBIN TIME (PATIENT) 12.8 SEC (9.7-13.0)
[2020-07-28 18:08] LABS: ACTIVATED PTT 23.7 SECONDS (25.2-36.5)
[2020-07-28 18:25] LABS: CALCIUM 8.9 mg/dL (8.5-10.1)
[2020-07-28 18:26] LABS: ALBUMIN 3.2 g/dl (3.4-5.0); BLOOD UREA NITROGEN 21.6 mg/dL (7-18)
[2020-07-28 18:29] LABS: CREATININE 1.1 mg/dL (0.55-1.3)
[2020-07-28 18:31] LABS: BILIRUBIN,TOTAL 0.7 mg/dL (0.2-1); TOT PROT 6.4 g/dl (6.4-8.2)
[2020-07-28] MEDS ORDERED: DOCUSATE SODIUM 100 MG CAPSULE (FP) PO PRN (21:24)
[2020-07-28] MEDS ORDERED: KCL 10 MEQ IVPB 10 MEQ/100 ML INFUS.BAG IVPB SCH (21:30)
[2020-07-28] MEDS ORDERED: POTASSIUM CHLORIDE TABS 20 MEQ TABLET.ER (FP) PO ONE (22:11)
[2020-07-29] MEDS ORDERED: PIPERACILLIN/TAZOBACTAM 3.375 GM VIAL IVPB ONE ×3 (01:36→15:50)
[2020-07-29] MEDS ORDERED: DEXTROSE 5%-WATER - 50 ML IVPB ONE ×3 (01:37→15:50)
[2020-07-29] MEDS: PIPERACILLIN/TAZOB 3.375 GM 3.375 GM in DEXTROSE 5%-WATER - 50 ML IVPB SCH ×3 (02:24→17:04)
[2020-07-29] MEDS ORDERED: MELATONIN 5 MG TABLETS PO ONE (03:15)
[2020-07-29 04:06] LABS: SARS-CoV-2 NAA Not Detected (Not Detected)
[2020-07-29] MEDS: INSULIN SLIDING SCALE (NOVOLOG) 1 VIAL SQ SCH ×4 (06:10→21:14)
[2020-07-29] MEDS ORDERED: LEVOTHYROXINE NA 100 MCG TABLET (FP) PO SCH (07:00)
[2020-07-29 08:24] LABS: HEMATOCRIT 25.5 % (35.4-49); MCH 31.8 pg (25.7-33.7); MCHC 35.4 g/dl (32.0-35.9); MEAN CELL VOLUME 89.9 fl (80-96); MEAN PLT VOLUME 7.6 fl (7.5-11.1); PLATELET COUNT 136 K/MM3 (134-434); RBC 2.84 M/mm3 (4.00-5.60); WHITE BLOOD COUNT 5.7 K/mm3 (4.0-10.0)
[2020-07-29] MEDS ORDERED: amLODIPine BESYLATE 5 MG TABLET (FP) PO SCH ×2 (10:00→10:15)
[2020-07-29] MEDS: PANTOPRAZOLE 40 MG TABLET PO SCH (10:56)
[2020-07-29] MEDS: SENNOSIDES 8.6MG TABLET (FP) PO SCH ×2 (10:56→21:13)
[2020-07-29] MEDS: NICOTINE 21 MG/24 HOURS TOPICAL PATCH TD SCH (10:58)
[2020-07-29] MEDS: HYDROCORTISONE SOD SUCCINATE 100 MG/2 ML VIAL IVPB SCH (10:59)
[2020-07-29] MEDS: POLYETHYLENE GLYCOL 3350 119 GM BTL PO SCH ×2 (10:59→21:14)
[2020-07-29] MEDS: ENOXAPARIN NA (PORCINE) 40 MG/0.4 ML DISP.SYRIN SQ SCH (10:59)
[2020-07-29] MEDS: SODIUM CHLORIDE 1 GM TABLET PO SCH (10:59)
[2020-07-29] MEDS: MINERAL OIL/PET HY-PHL TOPICAL OINTMENT 454 GM JAR TP SCH ×2 (10:59→21:13)
[2020-07-29] MEDS: amLODIPine BESYLATE 10 MG TABLET (FP) PO SCH (11:14)
[2020-07-29] MEDS ORDERED: traZODone HCL 50 MG TABLET (FP) PO SCH (22:00)
[2020-07-30] MEDS ORDERED: PIPERACILLIN/TAZOBACTAM 3.375 GM VIAL IVPB ONE ×2 (01:49→10:08)
[2020-07-30] MEDS ORDERED: DEXTROSE 5%-WATER - 50 ML IVPB ONE ×2 (01:49→10:08)
[2020-07-30] MEDS: PIPERACILLIN/TAZOB 3.375 GM 3.375 GM in DEXTROSE 5%-WATER - 50 ML IVPB SCH ×2 (02:06→10:18)
[2020-07-30 02:10] VITALS: BP 145/101
[2020-07-30] MEDS: INSULIN SLIDING SCALE (NOVOLOG) 1 VIAL SQ SCH (06:35)
[2020-07-30 07:08] VITALS: PULSE 97; TEMP 98.2
[2020-07-30 08:26] LABS: BASO % 0.1 % (0-2.0); EOS % 0.2 % (0-4.5); HEMATOCRIT 25.7 % (35.4-49); HEMOGLOBIN 8.9 GM/dL (11.7-16.9); MCH 31.6 pg (25.7-33.7); MCHC 34.6 g/dl (32.0-35.9); MEAN CELL VOLUME 91.2 fl (80-96); MEAN PLT VOLUME 7.8 fl (7.5-11.1); MONO % 7.3 % (3.8-10.2); NEUT % 80.4 % (42.8-82.8); PLATELET COUNT 134 K/MM3 (134-434); RBC 2.81 M/mm3 (4.00-5.60); RDW 16.5 % (11.9-15.9); WHITE BLOOD COUNT 4.5 K/mm3 (4.0-10.0)
[2020-07-30 08:43] LABS: BLOOD UREA NITROGEN 20.8 mg/dL (7-18)
[2020-07-30 08:44] LABS: CALCIUM 8.5 mg/dL (8.5-10.1)
[2020-07-30 08:46] LABS: CREATININE 1.1 mg/dL (0.55-1.3)
[2020-07-30 08:47] LABS: TOT PROT 6.5 g/dl (6.4-8.2)
[2020-07-30 08:49] LABS: BILIRUBIN,TOTAL 0.7 mg/dL (0.2-1)
[2020-07-30] MEDS ORDERED: HYDROCORTISONE SOD SUCCINATE 100 MG/2 ML VIAL IVPB SCH (10:00)
[2020-07-30] MEDS ORDERED: LEVOTHYROXINE SODIUM 100 MCG VIAL IVPUSH SCH (10:00)
[2020-07-30] MEDS ORDERED: POTASSIUM CHLORIDE TABS 20 MEQ TABLET.ER (FP) PO ONE (10:00)
[2020-07-30] MEDS: ENOXAPARIN NA (PORCINE) 40 MG/0.4 ML DISP.SYRIN SQ SCH (10:18)
[2020-07-30] MEDS: SENNOSIDES 8.6MG TABLET (FP) PO SCH (10:18)
[2020-07-30] MEDS: amLODIPine BESYLATE 10 MG TABLET (FP) PO SCH (10:18)
[2020-07-30] MEDS: SODIUM CHLORIDE 1 GM TABLET PO SCH (10:18)
[2020-07-30] MEDS: PANTOPRAZOLE 40 MG TABLET PO SCH (10:18)
[2020-07-30] MEDS: NICOTINE 21 MG/24 HOURS TOPICAL PATCH TD SCH (10:18)
[2020-07-30] MEDS: POLYETHYLENE GLYCOL 3350 119 GM BTL PO SCH (10:18)
[2020-07-30] MEDS: MINERAL OIL/PET HY-PHL TOPICAL OINTMENT 454 GM JAR TP SCH (10:18)
[2020-07-30] MEDS ORDERED: PT OWN MED DRAWER 7, Y5N ONE (10:49)
== END 2020-07-30 11:28 | disposition home or self-care (01) | DRG 951 ==
LOC: JER 12:45 → JERBED 16:04 → J5S 07-20 03:47 → J4W 07-27 04:01
PROVIDERS: ADMIT Internal Medicine
PROC: 30233N1 Transfusion of Nonautologous Red Blood Cells into Peripheral Vein, Percutaneous Approach (ICD-10-PCS; 2020-07-19)
PROC: 0Y300ZZ Control Bleeding in Right Buttock, Open Approach (ICD-10-PCS; 2020-07-24)
PROC: 0J990ZZ Drainage of Buttock Subcutaneous Tissue and Fascia, Open Approach (ICD-10-PCS; 2020-07-24)
PROC: 0JC90ZZ Extirpation of Matter from Buttock Subcutaneous Tissue and Fascia, Open Approach (ICD-10-PCS; principal; 2020-07-24 15:00)
DX: E03.2 Hypothyroidism due to medicaments and other exogenous substances (principal); F17.210 Nicotine dependence, cigarettes, uncomplicated; D63.0 Anemia in neoplastic disease; K59.03 Drug induced constipation; L76.22 Postprocedural hemorrhage of skin and subcutaneous tissue following other procedure; I82.501 Chronic embolism and thrombosis of unspecified deep veins of right lower extremity; C76.0 Malignant neoplasm of head, face and neck; I10 Essential (primary) hypertension; F11.23 Opioid dependence with withdrawal; G93.41 Metabolic encephalopathy; C78.00 Secondary malignant neoplasm of unspecified lung; D62 Acute posthemorrhagic anemia; L02.31 Cutaneous abscess of buttock; N17.9 Acute kidney failure, unspecified; E87.1 Hypo-osmolality and hyponatremia; K21.9 Gastro-esophageal reflux disease without esophagitis; E78.5 Hyperlipidemia, unspecified; R55 Syncope and collapse; Y83.9 Surgical procedure, unspecified as the cause of abnormal reaction of the patient, or of later complication, without mention of misadventure at the time of the procedure
CPT/HCPCS: 36415; 36430; 36511; 70450-TC; 71045-TC-FY; 71046-TC-FY; 71260-TC; 72125-TC; 72128-TC; 72131-TC; 73502-TC-LT-FY; 73502-TC-RT-FY; 74176-TC; 74177-TC; 76775-TC; 76856-TC; 76937; 80048; 80053; 80307; 81003; 82024; 82436; 82533; 82550; 82553; 82570; 82607; 82746; 82803; 82962; 83540; 83550; 83735; 83880; 83930; 83935; 84100; 84133; 84300; 84439; 84443; 84479; 84484; 85025; 85027; 85045; 85379; 85610; 85730; 86704; 86706; 86707; 86708; 86709; 86803; 86850; 86900; 86901; 86922; 87340; 88304-TC; 90732; 93005; 93010; 93970-TC; 94760; 97116-GP; 97161-GP; 99285-25; C9803; G0008; G0009; J0131; P9038; P9058; Q2036; Q9967; U0003; U0005

== ENCOUNTER 2020-08-09 00:55 | Emergency (ER) | payer OTHER ==
[2020-08-09 01:07] VITALS: TEMP 97.8; BMI 21.7
[2020-08-09 02:13] LABS: HEMATOCRIT 25.1 % (35.4-49); HEMOGLOBIN 8.4 GM/dL (11.7-16.9); MCH 32.3 pg (25.7-33.7); MCHC 33.6 g/dl (32.0-35.9); MEAN CELL VOLUME 96.2 fl (80-96); MEAN PLT VOLUME 7.5 fl (7.5-11.1); PLATELET COUNT 141 K/MM3 (134-434); RBC 2.61 M/mm3 (4.00-5.60); RDW 19.8 % (11.9-15.9)
[2020-08-09 02:38] LABS: CALCIUM 8.5 mg/dL (8.5-10.1)
[2020-08-09 02:39] LABS: ALBUMIN 3.6 g/dl (3.4-5.0); BLOOD UREA NITROGEN 25.1 mg/dL (7-18)
[2020-08-09 02:42] LABS: CREATININE 1.2 mg/dL (0.55-1.3)
[2020-08-09 02:44] LABS: BILIRUBIN,TOTAL 0.6 mg/dL (0.2-1); TOT PROT 7.2 g/dl (6.4-8.2)
[2020-08-09] MEDS ORDERED: amLODIPine BESYLATE 10 MG TABLET (FP) PO ONE (06:13)
[2020-08-09] MEDS ORDERED: amLODIPine BESYLATE 5 MG TABLET (FP) ONE (06:13)
[2020-08-09 06:16] VITALS: BP 147/97; PULSE 90
== END 2020-08-09 06:25 | disposition home or self-care (01) ==
LOC: JER 00:55
DX: F11.988 Opioid use, unspecified with other opioid-induced disorder (principal); C34.90 Malignant neoplasm of unspecified part of unspecified bronchus or lung
CPT/HCPCS: 36415; 80053; 85027; 99283-25

== ENCOUNTER 2020-08-09 08:30 | Inpatient (IN) | payer OTHER ==
[2020-08-09] MEDS ORDERED: IBUPROFEN 400 MG TABLET (FP) PO PRN (09:06)
[2020-08-09] MEDS ORDERED: MAGNESIUM HYDROX 2400MG/30ML ORAL SUSPENSION 30 ML CUP PO PRN (09:06)
[2020-08-09] MEDS ORDERED: MAG HYDROX/AL HYDROX/SIMETH 30 ML UNIT-DOSE CUP PO PRN (09:06)
[2020-08-09] MEDS ORDERED: MAGNESIUM CITRATE 300 ML BOTTLE PO PRN (09:06)
[2020-08-09] MEDS ORDERED: BISMUTH SUBSALICYLATE 524 MG/30 ML UD PO PRN (09:06)
[2020-08-09] MEDS ORDERED: MENTHOL/PHENOL 1 EACH UD MM PRN (09:06)
[2020-08-09] MEDS ORDERED: ACETAMINOPHEN 325 MG TABLET (FP) PO PRN ×2 (09:06)
[2020-08-09] MEDS ORDERED: NICOTINE POLACRILEX 2 MG GUM BUC PRN (09:06)
[2020-08-09] MEDS ORDERED: ONDANSETRON *ODT* 4 MG TABLET SL PRN (09:06)
[2020-08-09] MEDS: PRENATAL VITAMINS W/ FOLIC ACID TABLET (FP) PO SCH (11:02)
[2020-08-09] MEDS: LEVOTHYROXINE NA 25 MCG TABLET (FP) PO SCH (11:02)
[2020-08-09] MEDS: amLODIPine BESYLATE 5 MG TABLET (FP) PO SCH (11:02)
[2020-08-09] MEDS: NICOTINE 7 MG/24 HOURS TOPICAL PATCH TD SCH (11:02)
[2020-08-09] MEDS: PANTOPRAZOLE 20 MG TABLET PO SCH (11:02)
[2020-08-09] MEDS: hydrOXYzine PAMOATE 25 MG CAPSULE (FP) PO SCH ×4 (11:02→22:20)
[2020-08-09] MEDS: AMOX TR/POT CLAV 875MG/125MG TABLETS (FP) PO SCH ×2 (12:31→17:21)
[2020-08-09] MEDS: predniSONE 10 MG TABLET (UD) PO SCH (12:31)
[2020-08-09 12:54] LABS: HEMATOCRIT 26.8 % (35.4-49); MCH 32.7 pg (25.7-33.7); MCHC 33.5 g/dl (32.0-35.9); MEAN CELL VOLUME 97.6 fl (80-96); PLATELET COUNT 134 K/MM3 (134-434); RBC 2.75 M/mm3 (4.00-5.60); RDW 20.4 % (11.9-15.9); WHITE BLOOD COUNT 3.7 K/mm3 (4.0-10.0)
[2020-08-09 13:00] LABS: ALBUMIN 3.9 g/dl (3.4-5.0); BLOOD UREA NITROGEN 21.8 mg/dL (7-18); CALCIUM 8.4 mg/dL (8.5-10.1)
[2020-08-09 13:04] LABS: CREATININE 1.2 mg/dL (0.55-1.3)
[2020-08-09 13:05] LABS: BILIRUBIN,TOTAL 0.7 mg/dL (0.2-1); TOT PROT 7.4 g/dl (6.4-8.2)
[2020-08-09] MEDS: THIAMINE HCL 100 MG TABLET (FP) PO SCH (22:21)
[2020-08-09] MEDS: MELATONIN 5 MG TABLETS PO SCH (22:21)
[2020-08-10] MEDS: hydrOXYzine PAMOATE 25 MG CAPSULE (FP) PO SCH ×5 (05:25→22:15)
[2020-08-10] MEDS: LEVOTHYROXINE NA 25 MCG TABLET (FP) PO SCH (07:01)
[2020-08-10] MEDS: AMOX TR/POT CLAV 875MG/125MG TABLETS (FP) PO SCH ×2 (07:02→18:46)
[2020-08-10] MEDS ORDERED: METHADONE HCL 10 MG TABLET (FOR DETOX USE ONLY) PO ONE (09:44)
[2020-08-10] MEDS ORDERED: cloNIDine HCL 0.1 MG TABLET PO PRN (09:44)
[2020-08-10] MEDS: amLODIPine BESYLATE 5 MG TABLET (FP) PO SCH (10:22)
[2020-08-10] MEDS: PRENATAL VITAMINS W/ FOLIC ACID TABLET (FP) PO SCH (10:22)
[2020-08-10] MEDS: PANTOPRAZOLE 20 MG TABLET PO SCH (10:22)
[2020-08-10] MEDS: predniSONE 10 MG TABLET (UD) PO SCH (10:22)
[2020-08-10] MEDS: NICOTINE 7 MG/24 HOURS TOPICAL PATCH TD SCH (10:25)
[2020-08-10] MEDS: THIAMINE HCL 100 MG TABLET (FP) PO SCH (22:15)
[2020-08-10] MEDS: MELATONIN 5 MG TABLETS PO SCH (22:15)
[2020-08-11] MEDS: METHOCARBAMOL 500 MG TABLET PO PRN (02:21)
[2020-08-11] MEDS: hydrOXYzine PAMOATE 25 MG CAPSULE (FP) PO SCH ×5 (05:18→22:17)
[2020-08-11] MEDS: LEVOTHYROXINE NA 25 MCG TABLET (FP) PO SCH (06:13)
[2020-08-11] MEDS: AMOX TR/POT CLAV 875MG/125MG TABLETS (FP) PO SCH ×2 (07:07→18:49)
[2020-08-11] MEDS ORDERED: METHADONE HCL 5 MG TABLET (FOR DETOX USE ONLY) ONE (09:26)
[2020-08-11] MEDS ORDERED: METHADONE HCL 10 MG TABLET (FOR DETOX USE ONLY) ONE (09:27)
[2020-08-11] MEDS ORDERED: METHADONE (DETOX) 20 MG, METHADONE (DETOX) 5 MG PO ONE (10:00)
[2020-08-11] MEDS: predniSONE 10 MG TABLET (UD) PO SCH (10:46)
[2020-08-11] MEDS: PRENATAL VITAMINS W/ FOLIC ACID TABLET (FP) PO SCH (10:47)
[2020-08-11] MEDS: amLODIPine BESYLATE 5 MG TABLET (FP) PO SCH (10:47)
[2020-08-11] MEDS: NICOTINE 7 MG/24 HOURS TOPICAL PATCH TD SCH (10:47)
[2020-08-11] MEDS: PANTOPRAZOLE 20 MG TABLET PO SCH (10:47)
[2020-08-11] MEDS: THIAMINE HCL 100 MG TABLET (FP) PO SCH (22:17)
[2020-08-11] MEDS: traZODone HCL 50 MG TABLET (FP) PO SCH (22:18)
[2020-08-11] MEDS: MELATONIN 5 MG TABLETS PO SCH (22:18)
[2020-08-12] MEDS: hydrOXYzine PAMOATE 25 MG CAPSULE (FP) PO SCH ×5 (05:12→23:06)
[2020-08-12] MEDS: LEVOTHYROXINE NA 25 MCG TABLET (FP) PO SCH (06:25)
[2020-08-12] MEDS: AMOX TR/POT CLAV 875MG/125MG TABLETS (FP) PO SCH ×2 (07:51→23:05)
[2020-08-12] MEDS ORDERED: METHADONE HCL 10 MG TABLET (FOR DETOX USE ONLY) PO ONE (10:00)
[2020-08-12] MEDS: METHOCARBAMOL 500 MG TABLET PO PRN (10:51)
[2020-08-12] MEDS: PANTOPRAZOLE 20 MG TABLET PO SCH (10:51)
[2020-08-12] MEDS: PRENATAL VITAMINS W/ FOLIC ACID TABLET (FP) PO SCH (10:51)
[2020-08-12] MEDS: amLODIPine BESYLATE 5 MG TABLET (FP) PO SCH (10:51)
[2020-08-12 10:54] LABS: HEMOGLOBIN 7.9 GM/dL (11.7-16.9); MCHC 34.2 g/dl (32.0-35.9); MEAN CELL VOLUME 96.5 fl (80-96); MEAN PLT VOLUME 7.8 fl (7.5-11.1); PLATELET COUNT 120 K/MM3 (134-434); RBC 2.38 M/mm3 (4.00-5.60); RDW 19.7 % (11.9-15.9); WHITE BLOOD COUNT 3.7 K/mm3 (4.0-10.0)
[2020-08-12] MEDS: NICOTINE 7 MG/24 HOURS TOPICAL PATCH TD SCH (10:54)
[2020-08-12] MEDS: predniSONE 10 MG TABLET (UD) PO SCH (13:53)
[2020-08-12] MEDS: MELATONIN 5 MG TABLETS PO SCH (23:06)
[2020-08-12] MEDS: traZODone HCL 50 MG TABLET (FP) PO SCH (23:06)
[2020-08-12] MEDS: THIAMINE HCL 100 MG TABLET (FP) PO SCH (23:07)
[2020-08-13] MEDS: AMOX TR/POT CLAV 875MG/125MG TABLETS (FP) PO SCH ×2 (07:57→17:48)
[2020-08-13] MEDS: LEVOTHYROXINE NA 25 MCG TABLET (FP) PO SCH (07:58)
[2020-08-13] MEDS: hydrOXYzine PAMOATE 25 MG CAPSULE (FP) PO SCH ×5 (07:58→21:59)
[2020-08-13] MEDS ORDERED: METHADONE HCL 5 MG TABLET (FOR DETOX USE ONLY) ONE (09:37)
[2020-08-13] MEDS ORDERED: METHADONE HCL 10 MG TABLET (FOR DETOX USE ONLY) ONE (09:37)
[2020-08-13] MEDS ORDERED: METHADONE (DETOX) 10 MG, METHADONE (DETOX) 5 MG PO ONE (10:00)
[2020-08-13] MEDS: predniSONE 10 MG TABLET (UD) PO SCH (10:57)
[2020-08-13] MEDS: PRENATAL VITAMINS W/ FOLIC ACID TABLET (FP) PO SCH (10:57)
[2020-08-13] MEDS: PANTOPRAZOLE 20 MG TABLET PO SCH (10:58)
[2020-08-13] MEDS: NICOTINE 7 MG/24 HOURS TOPICAL PATCH TD SCH (11:06)
[2020-08-13] MEDS: amLODIPine BESYLATE 5 MG TABLET (FP) PO SCH (11:59)
[2020-08-13] MEDS ORDERED: LEVOTHYROXINE NA 25 MCG TABLET (FP) PO ONE (12:00)
[2020-08-13] MEDS ORDERED: cloNIDine HCL 0.1 MG TABLET PO PRN (12:18)
[2020-08-13] MEDS: traZODone HCL 50 MG TABLET (FP) PO SCH (21:58)
[2020-08-13] MEDS: THIAMINE HCL 100 MG TABLET (FP) PO SCH (21:58)
[2020-08-13] MEDS: MELATONIN 5 MG TABLETS PO SCH (21:59)
[2020-08-14 02:09] LABS: SARS-CoV-2 NAA Not Detected (Not Detected)
[2020-08-14] MEDS: hydrOXYzine PAMOATE 25 MG CAPSULE (FP) PO SCH ×5 (05:55→22:35)
[2020-08-14] MEDS: LEVOTHYROXINE NA 25 MCG TABLET (FP) PO SCH (06:10)
[2020-08-14] MEDS: AMOX TR/POT CLAV 875MG/125MG TABLETS (FP) PO SCH ×2 (07:02→17:29)
[2020-08-14] MEDS ORDERED: METHADONE HCL 10 MG TABLET (FOR DETOX USE ONLY) PO ONE (10:00)
[2020-08-14] MEDS ORDERED: amLODIPine BESYLATE 5 MG TABLET (FP) PO SCH (10:00)
[2020-08-14] MEDS: amLODIPine BESYLATE 10 MG TABLET (FP) PO SCH (10:06)
[2020-08-14] MEDS: predniSONE 10 MG TABLET (UD) PO SCH (10:06)
[2020-08-14] MEDS: PANTOPRAZOLE 20 MG TABLET PO SCH (10:06)
[2020-08-14] MEDS: METHOCARBAMOL 500 MG TABLET PO PRN (10:06)
[2020-08-14] MEDS: PRENATAL VITAMINS W/ FOLIC ACID TABLET (FP) PO SCH (10:07)
[2020-08-14] MEDS: NICOTINE 7 MG/24 HOURS TOPICAL PATCH TD SCH (10:08)
[2020-08-14] MEDS: MELATONIN 5 MG TABLETS PO SCH (22:35)
[2020-08-14] MEDS: traZODone HCL 50 MG TABLET (FP) PO SCH (22:35)
[2020-08-14] MEDS: THIAMINE HCL 100 MG TABLET (FP) PO SCH (22:35)
[2020-08-15] MEDS: hydrOXYzine PAMOATE 25 MG CAPSULE (FP) PO SCH (05:59)
[2020-08-15] MEDS ORDERED: METHADONE HCL 5 MG TABLET (FOR DETOX USE ONLY) PO ONE (06:00)
[2020-08-15] MEDS: LEVOTHYROXINE NA 25 MCG TABLET (FP) PO SCH (06:03)
[2020-08-15] MEDS: amLODIPine BESYLATE 10 MG TABLET (FP) PO SCH (09:18)
[2020-08-15] MEDS: PANTOPRAZOLE 20 MG TABLET PO SCH (09:18)
[2020-08-15] MEDS: NICOTINE 7 MG/24 HOURS TOPICAL PATCH TD SCH (09:19)
[2020-08-15] MEDS: PRENATAL VITAMINS W/ FOLIC ACID TABLET (FP) PO SCH (09:19)
[2020-08-15] MEDS: AMOX TR/POT CLAV 875MG/125MG TABLETS (FP) PO SCH (09:19)
[2020-08-15] MEDS: predniSONE 10 MG TABLET (UD) PO SCH (09:19)
[2020-08-15 09:22] VITALS: BP 142/87; PULSE 106; TEMP 97.7
== END 2020-08-15 09:22 | disposition home or self-care (01) | DRG 773 ==
LOC: YASAS 08:30 → Y6N 09:49
PROVIDERS: ADMIT Allergy & Immunology; ATTEND Allergy & Immunology
PROC: HZ2ZZZZ Detoxification Services for Substance Abuse Treatment (ICD-10-PCS; principal; 2020-08-09)
DX: F11.23 Opioid dependence with withdrawal (principal); F19.282 Other psychoactive substance dependence with psychoactive substance-induced sleep disorder; F19.24 Other psychoactive substance dependence with psychoactive substance-induced mood disorder; C34.90 Malignant neoplasm of unspecified part of unspecified bronchus or lung; D64.81 Anemia due to antineoplastic chemotherapy; E03.9 Hypothyroidism, unspecified; I10 Essential (primary) hypertension; R06.02 Shortness of breath
CPT/HCPCS: 36415; 80053; 82728; 83540; 83550; 84520; 85027; 86780; 93005; 93010; C9803; J0735; U0003; U0005

== ENCOUNTER 2020-08-12 16:24 | Emergency (ER) | payer OTHER ==
[2020-08-12 16:53] VITALS: BMI 17.6
[2020-08-12 18:26] LABS: BASO % 0.5 % (0-2.0); EOS % 0.8 % (0-4.5); HEMATOCRIT 24.9 % (35.4-49); HEMOGLOBIN 8.4 GM/dL (11.7-16.9); LYMPH % 11.2 % (8-40); MCH 32.9 pg (25.7-33.7); MCHC 33.6 g/dl (32.0-35.9); MEAN PLT VOLUME 7.6 fl (7.5-11.1); MONO % 4.9 % (3.8-10.2); NEUT % 82.6 % (42.8-82.8); PLATELET COUNT 128 K/MM3 (134-434); RBC 2.54 M/mm3 (4.00-5.60); RDW 20.3 % (11.9-15.9)
[2020-08-12 18:33] LABS: INR 0.98 (0.83-1.09); PROTHROMBIN TIME (PATIENT) 12.1 SEC (9.7-13.0)
[2020-08-12 18:36] LABS: ACTIVATED PTT 26.5 SECONDS (25.2-36.5)
[2020-08-12 18:45] LABS: CHLORIDE 102 mmol/L (98-107); SODIUM 138 mmol/L (136-145)
[2020-08-12 18:47] LABS: CALCIUM 8.9 mg/dL (8.5-10.1)
[2020-08-12 18:48] LABS: ALBUMIN 4.3 g/dl (3.4-5.0); ANION GAP 1 MMOL/L (8-16); BLOOD UREA NITROGEN 27.9 mg/dL (7-18); CO2 35 mmol/L (21-32); GLUCOSE,RANDOM 83 mg/dL (74-106)
[2020-08-12 18:51] LABS: CREATININE 1.3 mg/dL (0.55-1.3); SGOT/AST 26 U/L (15-37); SGPT/ALT 61 U/L (13-61)
[2020-08-12 18:53] LABS: BILIRUBIN,TOTAL 0.6 mg/dL (0.2-1); TOT PROT 8.3 g/dl (6.4-8.2)
[2020-08-12 18:54] LABS: ALK PHOS 76 U/L (45-117)
[2020-08-12] MEDS ORDERED: LEVOTHYROXINE NA 25 MCG TABLET (FP) PO ONE (22:08)
[2020-08-12 22:15] LABS: EPI CELLS 1 /uL (0-25.1); HYALINE CASTS 1 /uL (0-3.1); PH,URINE 6.5 (5.0-8.0); URINE APPEARANCE CLEAR; URINE BACTERIA 20 /uL (0-1359); URINE BILIRUBIN NEGATIVE (NEGATIVE); URINE COLOR YELLOW; URINE GLUCOSE (UA) NEGATIVE (NEGATIVE); URINE KETONE NEGATIVE (NEGATIVE); URINE LEUK ESTERASE NEGATIVE (NEGATIVE); URINE NITRITE NEGATIVE (NEGATIVE); URINE PROTEIN 1+ (NEGATIVE); URINE RBC 3 /uL (0-23.9); URINE UROBILINOGEN 0.2 mg/dL (0.2-1.0); URINE WBC 2 /uL (0-25.8)
[2020-08-12] MEDS ORDERED: LEVOTHYROXINE NA 25 MCG TABLET (FP) ONE (22:40)
[2020-08-13 07:09] VITALS: PULSE 86; TEMP 97.8
[2020-08-13] MEDS ORDERED: amLODIPine BESYLATE 5 MG TABLET (FP) PO ONE (08:18)
[2020-08-13] MEDS ORDERED: amLODIPine BESYLATE 5 MG TABLET (FP) ONE (08:19)
[2020-08-13 08:24] VITALS: BP 164/102
== END 2020-08-13 08:26 | disposition home or self-care (01) ==
LOC: JER 16:24
DX: D64.9 Anemia, unspecified (principal); E03.9 Hypothyroidism, unspecified
CPT/HCPCS: 36415; 74174-TC; 80053; 81003; 82272; 82550; 84439; 84443; 84484; 85025; 85610; 85730; 86850; 86900; 86901; 87086; 93005; 93010; 99285-25